=== PATIENT | female | born 2000 | race Caucasian/White ===

== ENCOUNTER 2023-10-30 08:21 | Day surgery (SDC) | payer OTHER, SELFPAY ==
[2023-10-30 08:44] LABS: Internal QC Validated? YES +Cl - CLEAR BKGD; Pregnancy, Urine Negative Negative; Record Kit Lot#,Urine Preg HCG0000667200
[2023-10-30] MEDS: Lactated Ringers 1,000 ML 15 ML IV (08:53)
[2023-10-30 08:56] VITALS: BP 121/54; PULSE 91; RESP 18; TEMP 36.9; O2SAT 97; BMI 29.0
[2023-10-30] MEDS: Cefazolin 2 GM in 0.9% Normal Saline (100mL Bag) 100 ML IV (10:38)
--- NOTE | 2023-10-30 10:58 | RAD_ITS ---
STUDY: X-RAY - LEFT ANKLE REASON FOR EXAM: Female, 23 years old. FX TECHNIQUE: 3 view(s) of the ankle. COMPARISON: None. FINDINGS: 70 seconds of fluoroscopy of the left ankle was used in operating room during open reduction internal fixation and 6 images are cemented for interpretation. . RAD/Ankle min 3 Views IMPRESSION: Fluoroscopy during open reduction internal fixation of the ankle fractures. Electronically Signed: Hiram Aguilar MD at 22:47 EST ,
[2023-10-30] MEDS: Bupivacaine Mpf 0.5% 30 ML VIAL (12:15)
[2023-10-30 12:56] VITALS: BP 108/66; BP 121/54; PULSE 96; RESP 18; TEMP 37.1; O2SAT 99
[2023-10-30 13:00] VITALS: BP 112/64; BP 121/54; PULSE 88; RESP 18; O2SAT 98
--- NOTE | 2023-10-30 13:14 | DCINST_ITS ---
Discharge Instructions Follow Up Care Test Results: Test results from this visit will be discussed in further detail at your follow- up appointment, if applicable. Discharge Plan Admission Primary Reason for Your Visit: Left ankle surgery Attending Provider: Curry Manzanares Primary Care Provider: Betsy Galloway INDUSTRIAL HYGIENE MANAGER Instructions Additional Instructions / Restrictions: Follow preprinted instructions from your surgeons office. Discharge Orders/Prescriptions Prescriptions: No Action hydrocodone-acetaminophen 5-325 mg tablet 1 tab PO Q6H PRN (Reason: pain) Patient Comments: TAKE 1 TABLET BY MOUTH EVERY 6 HOURS NEEDED FOR PAIN Referrals / Follow Up: Evangelista Webb MD [Non-Staff] - Curry Manaznares DO [Med Staff - Active Staff] - Disposition Disposition (needs filled in before D/C Order can be placed): Home, Self Care
--- NOTE | 2023-10-30 13:14 | PCM.OPRPT ---
Report of Operation Date of Procedure: 10/30/23 Description of Surgical Findings:: Preoperative diagnosis: Left ankle trimalleolar ankle fracture Postoperative diagnosis: 1. Left ankle trimalleolar fracture 2. Left ankle syndesmosis rupture Procedure: 1. Open reduction internal fixation left ankle medial and lateral malleoli 2. Left ankle syndesmosis open reduction internal fixation Surgeon: Curry Manzanares DO [employer] Engineer Sergeant: Stephanie Monson PA-C Anesthesia: General endotracheal with popliteal block Anesthesiologist: Dr. Milton Complications: None Drains: None Estimated blood loss: 25 cc Urinary output: None recorded IV fluids: 2000 cc crystalloid Specimens: None Surgical implants: Arthrex 5 hole distal fibular locking plate, Arthrex tight rope, partially-threaded 4.0 mm cancellous cannulated screws x2 Surgical indications: This is a 23-year-old female who sustained a fall while line dancing in [place]. Patient states she slipped on a wet floor causing a twisting injury to her left ankle. She was seen in the emergency department and x-rays revealed a left ankle trimalleolar fracture. She was splinted. She followed up with an orthopedic surgeon in [place] who recommended ORIF. Due to out of network insurance cost, patient came home and followed up with myself in the office last week. X-rays revealed a trimalleolar fracture with reasonable reduction. Her splint was taken down and skin was appropriate for surgery. CT scan was obtained. I recommended surgical intervention in the form of reduction internal fixation left ankle. I reviewed the risks, benefits, terms the procedure with the patient at length. The risks include but are not limited to bleeding, infection, loss of life or limb, risk of anesthesia, risk of nerve block, persistent pain, nonunion, malunion, posttraumatic arthritis, instability, need for additional surgery, failure of orthopedic hardware, persistent limp or need for assistive device. Patient expressed understanding of these risks and wished to proceed. Description of procedure: Patient was seen in preoperative holding area. They were identified by name, medical record number, date of . The operative extremity was marked with a surgical marker. We confirmed informed consent with the patient and all questions were answered to her satisfaction. In the preoperative holding area, a popliteal block was administered by the anesthesia staff. At time of the procedure, patient was brought to the operative suite and positioned supine on a standard operating table. All bony prominences were well-padded. General anesthesia was administered. After adequate anesthesia, a well-padded pneumatic tourniquet was applied to the left upper thigh. A large bump was placed in the patient's left hip. The left lower extremity was elevated on bath blankets for fluoroscopic imaging and access to the limb during surgery. We secured this with tape as well as the nonoperative extremity. We then performed a timeout with all parties in attendance and agree with the side, site, operation to be performed. No concerns were voiced and elected to proceed. 2 g Ancef was administered prior to incision by the anesthesia staff. We then prepped and draped the operative extremity using a ChloraPrep. While stabilizing the ankle, the operative extremity was exsanguinated with an Esmarch bandage. Tourniquet was inflated to 250 mmHg which remained up for approximately 60 minutes I first turned my attention the medial malleolus based on the more simple fracture pattern. Longitudinal incision was made sharply through skin and subcutaneous tissue in line with the medial malleolus. Blunt dissection was carried out down to the level of the periosteum. Periosteum was stripped at the fracture site fracture was encountered. Fracture site was opened and hematoma and early callus was debrided with a rongeur and thoroughly irrigated. A pointed reduction clamp was then placed on the tip of the medial malleolus achieving anatomic reduction. 2 smooth K wires were placed through the tip of the medial malleolus perpendicular to the fracture site. Appropriate reduction and pin placement was noted on orthogonal fluoroscopy. I then opened the distal cortex of the medial malleolus with a cannulated drill and two 4.0 mm cannulated cancellous screws were placed and tightened by hand, both 60 mm in length. Clamp was removed and there was excellent stability at the medial malleolus. I then turned my attention laterally. Incision was planned over the lateral malleolus and distal fibular shaft centered over the level of the fracture. Skin was sharply incised with a 15 blade scalpel. Superficial bleeders were cauterized with Bovie cautery. We then bluntly dissected to the level of the fascia. Fascia was opened with Bovie cautery. We examined closely for the superficial peroneal nerve which was not encountered throughout surgery. We bluntly dissected down to the level of the periosteum. Hohmann retractors were placed after fracture was encountered as well as the fibula. There is an anterior butterfly fragment noted as well as some buckling of the anterior cortex. Fracture site was opened and debrided of early callus and remote hematoma. Near-anatomic alignment was achieved with pointed reduction clamps. I then planned a anterior to posterior lag screw, lag by technique. In standard fashion, a 3.0 mm cortical screw was placed anterior to posterior perpendicular to the butterfly fragment into the distal segment with excellent compression and purchase. Clamps were removed. I did not feel there was enough area for an additional lag screw and proceeded with plating. A distal locking plate was selected due to the amount of comminution. Appropriate plate was selected achieving 3 bicortical screws proximal to the fracture site. This was held in place with K wires after orthogonal fluoroscopy confirmed appropriate placement and sizing. I compressed the plate to bone with the cancellous screw in the distal cluster as well as a bicortical cortex screw proximally. Distal cluster was filled with locking screws. 2 additional bicortical screws were placed in proximal segment. Fracture was stable laterally. Given the posterior malleolus fracture as well as an unstable cotton test which was performed at this time, I made the decision to proceed with tight rope fixation of the syndesmosis, indirectly fixing the posterior malleolus. I drilled across 4 cortices perpendicular to the syndesmosis with the foot in dorsiflexion, in standard fashion. Tight rope was placed and deployed along the medial cortex of the tibia. Sutures were sequentially tightened. There is excellent compression across the widened distal tib-fib joint. Final fluoroscopic images were obtained. Final stress exam revealed a stable syndesmosis and the posterior malleolus was anatomically reduced. Tourniquet was deflated. Hemostasis was excellent. I reapproximated the fascial layers over top of the lateral plate with a 2-0 Vicryl suture. Dermis was reapproximated buried 2-0 Vicryl suture. Skin was finally reapproximated with simple 3-0 nylon suture. A medial field block was administered with 20 cc total 0.5% plain bupivacaine. A bulky sterile compression dressing was applied as well as a 3 sided AO type fiberglass splint in maximal dorsiflexion. Patient tolerated procedure well without apparent complication. She was safely awoken the operative suite and transferred to her gurney and subsequent to PACU in stable condition. Need for skilled legal executive assistant: Stephanie Monson PA-C was critical to the outcome of the case. During the course of the procedure the physician legal executive assistant played a vital role. Her intimate knowledge of my steps in the procedure aided in safe and expedient completion of the procedure. The PA played a vital role in positioning particularly in obtaining the appropriate positioning. The PA was also vital in the retraction of soft tissues during the exposure and protecting vital structures. The PA was also vital and obtaining fracture reduction and assisting with hardware placement. She also played a vital role in closure and splint application with my direct supervision. Post Operative Plan: Weightbearing: Nonweightbearing operative extremity Antibiotics: 2 g Ancef x 1 dose preoperatively DVT Prophylaxis: Aspirin 81 mg twice daily starting postoperative day number 1 x 2 weeks Wilson: None Dressing: Maintain splint, keep it clean dry and intact until follow-up X-Rays: 2 weeks postop in the office Pain Medication: Oxycodone Rx provided in the office Follow-up: 2 weeks post-operatively with me in the office
[2023-10-30 13:15] VITALS: BP 107/59; BP 121/54; PULSE 88; RESP 18; O2SAT 99
[2023-10-30 13:26] VITALS: BP 113/63; BP 121/54; PULSE 95; RESP 18; TEMP 36.8; O2SAT 98
[2023-10-30 13:50] VITALS: BP 121/54
== END 2023-10-30 14:10 | disposition home or self-care (01) ==
LOC: SDC 08:23 → AC 08:25
PROVIDERS: Anesthesiology; PCP Nurse Practitioner Family; Referring Provider Student in an Organized Health Care Education/Training Program; Visit Provider Student in an Organized Health Care Education/Training Program
PROC: (CPT 27822; principal; 2023-10-30 09:40)
DX: S82.852A Displaced trimalleolar fracture of left lower leg, initial encounter for closed fracture (principal); W01.0XXA Fall on same level from slipping, tripping and stumbling without subsequent striking against object, initial encounter; M25.572 Pain in left ankle and joints of left foot; E66.3 Overweight; Z68.28 Body mass index [BMI] 28.0-28.9, adult
CPT/HCPCS: 27822; 01480; 64450; 73610; 76000; 81025; C1713; J7120; J2405